=== PATIENT | female | born 1945 | race Hispanic/Latino ===

== ENCOUNTER 2018-01-23 16:05 | Inpatient (IN) | payer MEDICARE, MEDICAID ==
[2018-01-23 16:05] VITALS: BMI 25.4
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
--- NOTE | 2018-01-23 17:51 | RAD ---
Date of service: 01/23/2018 PROCEDURE: CHEST RADIOGRAPH, 1 VIEW HISTORY: ROUTINE COMPARISON: Chest radiograph dated 02/22/2012. FINDINGS: LUNGS: Clear. PLEURA: No pneumothorax or pleural fluid seen. CARDIOVASCULAR: Atherosclerotic aortic calcifications. Cardiomediastinal silhouette stably enlarged. OSSEOUS STRUCTURES: Unchanged. VISUALIZED UPPER ABDOMEN: Inferior vena cava filter redemonstrated. OTHER FINDINGS: None. IMPRESSION: No active disease.
[2018-01-23 18:05] LABS: BASO # 0.1 K/uL (0.0-0.2); BASO % 0.7 % (0.0-2.0); EOS # 0.1 K/uL (0.0-0.7); EOS % 1.4 % (0.0-4.0); HEMOGLOBIN 12.4 g/dL (12.0-16.0); LYMPH # 3.9 K/uL (1.0-4.3); LYMPH % 46.4 % (20.0-40.0); MEAN CELL VOLUME 100.2 fl (81.0-99.0); MEAN CORPUSCULAR HEMOGLOBIN 32.8 pg (27.0-31.0); MEAN CORPUSCULAR HGB CONC 32.7 g/dL (33.0-37.0); MEAN PLATELET VOLUME 10.5 fl (7.2-11.7); MONO % 11.5 % (0.0-10.0); NEUT # 3.3 K/uL (1.8-7.0); NRBC % 0.1 % (0.0-0.0); RBC 3.78 Mil/uL (3.80-5.20); RED CELL DISTRIBUTION WIDTH 13.6 % (11.5-14.5); WHITE BLOOD COUNT 8.3 K/uL (4.8-10.8)
[2018-01-23 18:17] LABS: ALB/GLOB RATIO 1.4 (1.0-2.1); ALBUMIN 3.9 g/dL (3.5-5.0); CALCIUM 8.7 mg/dL (8.4-10.2)
[2018-01-23] MEDS ORDERED: Albuterol-Ipratrop 3 mg / 0.5 (3 ml) UD IH STA (22:17)
[2018-01-23] MEDS ORDERED: Albuterol-Ipratrop 3 mg / 0.5 (3 ml) UD ONE (22:33)
[2018-01-23 22:49] VITALS: O2SAT 97
[2018-01-24] MEDS ORDERED: Alum-Mag Hydrox-Simethicone Susp (30 mL) PO PRN (00:15)
[2018-01-24] MEDS ORDERED: Magnesium Hydroxide Susp 30 ml UD PO PRN (00:15)
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
[2018-01-24] MEDS ORDERED: POLYETHYLENE GLYCOL 3350 17 GM/Dose PACKET PO PRN (00:55)
[2018-01-24] MEDS: Albuterol-Ipratrop 3 mg / 0.5 (3 ml) UD INH PRN ×2 (01:38→20:14)
[2018-01-24] MEDS: Multivitamin With Minerals Tab PO SCH (08:55)
[2018-01-24] MEDS: Divalproex 500 mg DR(BID formulation) PO SCH ×2 (08:55→17:34)
[2018-01-24] MEDS: Fluticasone-Salmeterol 250-50mcg Diskus IH SCH ×2 (08:56→21:17)
[2018-01-24 09:13] LABS: IRON 55 ug/dL (37-170)
[2018-01-24 09:18] LABS: T4 6.66 ug/dl (5.5-11.0)
[2018-01-24 09:27] LABS: % IRON SATURATION 22 % (20-55); TOTAL IRON BINDING CAPACITY 251 ug/dL (250-450)
--- NOTE | 2018-01-24 12:34 | CARD ---
APPROVED REPORT Date of service: 01/23/2018 EKG Measurement Heart [id number] <Conclusion> Normal sinus rhythm Normal ECG
[2018-01-24 17:45] LABS: FOLATE 9.7 ng/mL
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
--- NOTE | 2018-01-24 19:54 | CP.PCM.CON ---
History of Present Illness - History of Present Illness History of Present Illness: This is a 72 year old female with a past medical history of CHF, COPD, Depression, HTN, Schizophrenia, Depression, [facility]. The patient stated that she was upset at another resident. The history is limited due to the patient's psychiatric status. She denies any recent illnesses and states that she feels well. Other history from the patient could not be obtained. Review of Systems - Review of Systems Systems not reviewed;Unavailable: Dementia (Likely dementia and history of schizophrenia/bipolar) Past Patient History - Infectious Disease Hx of Infectious Diseases: None - Past Medical History & Family History Past Medical History?: Yes Past Family History: Reviewed and not pertinent - Past Social History Smoking Status: Never Smoked Alcohol: None Drugs: Denies - CARDIAC Hx Congestive Heart Failure: Yes Hx Hypertension: Yes - PULMONARY Hx Chronic Obstructive Pulmonary Disease (COPD): Yes - NEUROLOGICAL HX Cerebrovascular Accident: No Hx Seizures: No - HEENT Hx HEENT Problems: Yes Hx Cataracts: Yes - RENAL Hx Chronic Kidney Disease: No - ENDOCRINE/METABOLIC Hx Endocrine Disorders: No - HEMATOLOGICAL/ONCOLOGICAL Hx Cancer: No Hx Human Immunodeficiency Virus (HIV): No - INTEGUMENTARY Hx Dermatological Problems: No - MUSCULOSKELETAL/RHEUMATOLOGICAL Hx Falls: Yes Hx Fractures: Yes (SPINE/LEFT FEMUR/LEFT HIP) - GASTROINTESTINAL Hx Gastrointestinal Disorders: No - GENITOURINARY/GYNECOLOGICAL Hx Sexually Transmitted Disorders: No - PSYCHIATRIC Hx Bipolar Disorder: Yes Hx Depression: Yes Hx Schizophrenia: Yes Hx Substance Use: No - SURGICAL HISTORY Hx Surgeries: Yes Hx Open Reduction Internal Fixation: Yes (LEFT HIP) Hx Orthopedic Surgery: Yes (LEFT FEMUR) Other/Comment: IVC FILTER - ANESTHESIA Hx Anesthesia: Yes Hx Anesthesia Reactions: No (UNKNOWN) Hx Malignant Hyperthermia: No Meds Allergies/Adverse Reactions: Allergies Allergy/AdvReac Type Severity Reaction Status Date / Time aspirin Allergy NAUSEA Verified 01/23/18 16:49 lithium Allergy RASH Verified 01/23/18 16:49 paroxetine Allergy RASH Verified 01/23/18 16:49 - Medications Medications: Current Medications Acetaminophen (Tylenol 325mg Tab) 650 mg PO Q4 PRN PRN Reason: Pain, moderate (4-7) Al Hydrox/Mg Hydrox/Simethicone (Maalox Plus 30 Ml) 30 ml PO Q4 PRN PRN Reason: Dyspepsia Albuterol/Ipratropium (Duoneb 3 Mg/0.5 Mg (3 Ml) Ud) 3 ml INH RQ6 PRN PRN Reason: Shortness of Breath Last Admin: 01/24/18 01:38 Dose: 3 ml Allopurinol (Zyloprim) 100 mg PO DAILY [facility] Last Admin: 01/24/18 08:55 Dose: 100 mg Atenolol (Tenormin) 50 mg PO DAILY [facility] Last Admin: 01/24/18 08:55 Dose: 50 mg Denosumab (Prolia) 60 mg SC Q6M [facility] Divalproex Sodium (Depakote Dr(*Bid*)) 500 mg PO BID [facility] Last Admin: 01/24/18 17:34 Dose: 500 mg Ergocalciferol (Drisdol 50,000 Intl Units Cap) 1 cap PO MO AALIYAH Lorazepam (Ativan) 0.5 mg PO HS PRN PRN Reason: Insomnia Stop: 02/07/18 00:16 Last Admin: 01/24/18 01:52 Dose: 0.5 mg Lorazepam (Ativan) 0.5 mg PO Q6 PRN PRN Reason: Anixety/Agitation Stop: 02/07/18 00:16 Magnesium Hydroxide (Milk Of Magnesia) 30 ml PO HS PRN PRN Reason: Constipation Magnesium Oxide (Mag-Ox) 400 mg PO HS [facility] Multivitamins/Minerals (Therapeutic-M Tab) 1 tab PO DAILY [facility] Last Admin: 01/24/18 08:55 Dose: 1 tab Polyethylene Glycol (Miralax) 17 gm PO DAILY PRN PRN Reason: Constipation Fluticasone/Salmeterol (Advair Diskus 250/50) 1 puff IH Q12 [facility] Last Admin: 01/24/18 08:56 Dose: 1 puff Physical Exam - Additional Findings Additional findings: Physical exam: Constitutional- cooperative, awake, alert, speech at times incoherent, tangential thought Head- NCAT, PERRL Eye- PERRL, EOMI ENT- normal exam, MMM. Neck- normal inspection, supple, no JVD Respiratory- CTAB, no wheezes rales rhonchi Cardiovascular- RRR, +S1, +S2 no MRG GI/Abdominal- normal bowel sounds, soft, no mass, no hsm Skin- warm, dry Extremities Exam- normal capillary refill, normal inspection Neurological Exam- alert, awake, oriented Psych- bizarre affect, normal mood Results - Vital Signs Recent Vital Signs: Last Vital Signs Temp 97.9 F 01/24/18 15:38 Pulse 68 01/24/18 15:38 Resp 20 01/24/18 15:38 BP 132/82 01/24/18 15:38 Pulse Ox 97 01/23/18 22:48 - Labs Result Diagrams: 01/23/18 17:30 01/23/18 17:30 Labs: Laboratory Results - last 24 hr 01/24/18 01/24/18 01/24/18 08:27 08:27 08:27 Hemoglobin A1c 5.5 Iron TIBC % Saturation Ferritin 696.0 H Triglycerides 272 H Cholesterol 175 LDL Cholesterol Direct 81 HDL Cholesterol 36 Vitamin B12 661 Folate 9.7 Free T4 1.29 Thyroxine (T4) 6.66 TSH 3rd Generation 0.27 L RPR 01/24/18 01/24/18 08:27 08:38 Hemoglobin A1c Iron 55 TIBC 251 % Saturation 22 Ferritin Triglycerides Cholesterol LDL Cholesterol Direct HDL Cholesterol Vitamin B12 Folate Free T4 Thyroxine (T4) TSH 3rd Generation RPR Nonreactive Assessment & Plan - Assessment and Plan (Free Text) Plan: This is a 72 year old female with a past medical history of CHF, COPD, Depression, HTN, Schizophrenia, Depression, who is admitted to [facility] after [facility] in [facility]. The patient stated that she was upset at another resident. The history is limited due to the patient's psychiatric status. She denies any recent illnesses and states that she feels well. Other history from the patient could not be obtained. 1) Depression - management as per psychiatry 2) Bipolar/Schizophrenia - management as per psychiatry 3) Essential hypertension - Continue Tenormin 50 mg po daily 4) COPD, stable, baseline - Duoneb q6h prn for SOB - Advair 1 puff IH q 12 hours 5) Renal insufficiency, likely chronic - increase po fluid intake
[2018-01-24 21:10] LABS: SQUAMOUS EPITHIAL < 1 /hpf (0-5); URINE BILIRUBIN NEGATIVE (NEGATIVE); URINE BLOOD NEGATIVE (NEGATIVE); URINE CLARITY CLEAR (Clear); URINE COLOR STRAW (YELLOW); URINE GLUCOSE (UA) NEG (Normal); URINE LEUKOCYTE ESTERASE NEG Leu/uL (Negative); URINE PROTEIN NEGATIVE (NEGATIVE); URINE UROBILINOGEN 0.2-1.0 mg/dL (0.2-1.0)
[2018-01-24] MEDS: Magnesium Oxide 400 mg Tab UD PO SCH (21:17)
[2018-01-25] MEDS: Albuterol-Ipratrop 3 mg / 0.5 (3 ml) UD INH PRN ×2 (03:10→17:46)
[2018-01-25] MEDS: Fluticasone-Salmeterol 250-50mcg Diskus IH SCH ×2 (08:21→21:02)
[2018-01-25] MEDS: Divalproex 500 mg DR(BID formulation) PO SCH ×2 (08:22→16:57)
[2018-01-25] MEDS: Multivitamin With Minerals Tab PO SCH (08:23)
--- NOTE | 2018-01-25 17:26 | PCM.PYCHPN ---
Psychiatric Progress Note - Psychiatric Progress Note Patient seen today, length of contact: chart reviewed case discussed with team Patient Chief Complaint: pt reports doing ok, people get on my nerves especially when they try to take my things denies concerns here. staff report pt irritable at times during night. during day reported to be calmer, seen participating in evening group while having meal with peers. requires total care. was seen by hospitalist Problems Identified/Issues Discussed: alteration in mood cognition i Medical Problems: per chart Diagnostic Results: per psychiatry per medicine per nursing per social work msw DSM 5 Symptoms Update: somewhat less irritable Medication Change: Yes Medical Record Reviewed: Yes Consults ordered or reviewed: pt seen by hospitalist Mental Status Examination - Cognitive Function Orientation: Person, Place, Situation, Time Memory: Impaired Attention: Poor Concentration: Poor Association: Loose Fund of Knowledge: Poor Decription of patient's judgement and insights: impaired - Mood Mood: Anxious - Affect Affect: Broad - Speech Speech: Pressured - Formal Thought Process Formal Thought Process: Paranoia - Homicidal Ideation Homicidal Ideation: No Goal/Treatment Plan - Goal/Treatment Plan Need for Continued Stay: Remain at risks for inpatient hospitalization, Discharge may exacerbated symptoms Progress Toward Problem(s) and Goals/Treatment Plan: inpt milieu vital signs clinical observation per protocol and per clinical status adjust meds per clinical status obtain dementia screening dr breann [place] precautions skin precautions hospitalist consult appreciated encourage po fluids discharge planning in progress Estimated Date of D/C: 01/31/18 - Smoking Cessation Smoking Cessation Initiated: No Reason for not providing: pt deferred
[2018-01-25] MEDS: Magnesium Oxide 400 mg Tab UD PO SCH (21:01)
[2018-01-26] MEDS: Multivitamin With Minerals Tab PO SCH (08:40)
[2018-01-26] MEDS: Divalproex 500 mg DR(BID formulation) PO SCH ×2 (08:40→18:08)
[2018-01-26] MEDS: Fluticasone-Salmeterol 250-50mcg Diskus IH SCH ×2 (09:00→21:20)
[2018-01-26] MEDS: Albuterol-Ipratrop 3 mg / 0.5 (3 ml) UD INH PRN (09:40)
--- NOTE | 2018-01-26 16:02 | CP.PCM.CON ---
History of Present Illness - History of Present Illness History of Present Illness: Pt is 72 year old female admitted to the geropsych unit and referred to the job specification writer for evaluation. On the DRS, pt scored an overall score of 95>. Pt scored in the deficient range on Attention, Construction, Conceptualization, Initiation, and Memory tasks. Overall 87 (125= = intact skills) Attention 29 Construction 2 Conceptualtion 22 Initiation 21 memory 13 Significant cognitive deficits evident on testing. Thank you for this referral, Dr. Abreu Past Patient History - Infectious Disease Hx of Infectious Diseases: None - Past Medical History & Family History Past Medical History?: Yes Past Family History: Reviewed and not pertinent - Past Social History Smoking Status: Never Smoked Alcohol: None Drugs: Denies - CARDIAC Hx Congestive Heart Failure: Yes Hx Hypertension: Yes - PULMONARY Hx Chronic Obstructive Pulmonary Disease (COPD): Yes - NEUROLOGICAL HX Cerebrovascular Accident: No Hx Seizures: No - HEENT Hx HEENT Problems: Yes Hx Cataracts: Yes - RENAL Hx Chronic Kidney Disease: No - ENDOCRINE/METABOLIC Hx Endocrine Disorders: No - HEMATOLOGICAL/ONCOLOGICAL Hx Cancer: No Hx Human Immunodeficiency Virus (HIV): No - INTEGUMENTARY Hx Dermatological Problems: No - MUSCULOSKELETAL/RHEUMATOLOGICAL Hx Falls: Yes Hx Fractures: Yes (SPINE/LEFT FEMUR/LEFT HIP) - GASTROINTESTINAL Hx Gastrointestinal Disorders: No - GENITOURINARY/GYNECOLOGICAL Hx Sexually Transmitted Disorders: No - PSYCHIATRIC Hx Bipolar Disorder: Yes Hx Depression: Yes Hx Schizophrenia: Yes Hx Substance Use: No - SURGICAL HISTORY Hx Surgeries: Yes Hx Open Reduction Internal Fixation: Yes (LEFT HIP) Hx Orthopedic Surgery: Yes (LEFT FEMUR) Other/Comment: IVC FILTER - ANESTHESIA Hx Anesthesia: Yes Hx Anesthesia Reactions: No (UNKNOWN) Hx Malignant Hyperthermia: No Meds Allergies/Adverse Reactions: Allergies Allergy/AdvReac Type Severity Reaction Status Date / Time aspirin Allergy NAUSEA Verified 01/23/18 16:49 lithium Allergy RASH Verified 01/23/18 16:49 paroxetine Allergy RASH Verified 01/23/18 16:49 - Medications Medications: Current Medications Acetaminophen (Tylenol 325mg Tab) 650 mg PO Q4 PRN PRN Reason: Pain, moderate (4-7) Al Hydrox/Mg Hydrox/Simethicone (Maalox Plus 30 Ml) 30 ml PO Q4 PRN PRN Reason: Dyspepsia Albuterol/Ipratropium (Duoneb 3 Mg/0.5 Mg (3 Ml) Ud) 3 ml INH RQ6 PRN PRN Reason: Shortness of Breath Last Admin: 01/26/18 09:40 Dose: 3 ml Allopurinol (Zyloprim) 100 mg PO DAILY [facility] Last Admin: 01/26/18 08:40 Dose: 100 mg Atenolol (Tenormin) 50 mg PO DAILY [facility] Last Admin: 01/26/18 08:41 Dose: 50 mg Denosumab (Prolia) 60 mg SC ONCE ONE Stop: 07/23/18 01:01 Divalproex Sodium (Depakote Dr(*Bid*)) 500 mg PO BID [facility] Last Admin: 01/26/18 08:40 Dose: 500 mg Ergocalciferol (Drisdol 50,000 Intl Units Cap) 1 cap PO MO [facility] Lorazepam (Ativan) 0.5 mg PO HS PRN PRN Reason: Insomnia Stop: 02/07/18 00:16 Last Admin: 01/24/18 01:52 Dose: 0.5 mg Lorazepam (Ativan) 0.5 mg PO Q6 PRN PRN Reason: Anixety/Agitation Stop: 02/07/18 00:16 Magnesium Hydroxide (Milk Of Magnesia) 30 ml PO HS PRN PRN Reason: Constipation Magnesium Oxide (Mag-Ox) 400 mg PO HS [facility] Last Admin: 01/25/18 21:01 Dose: 400 mg Multivitamins/Minerals (Therapeutic-M Tab) 1 tab PO DAILY [facility] Last Admin: 01/26/18 08:40 Dose: 1 tab Polyethylene Glycol (Miralax) 17 gm PO DAILY PRN PRN Reason: Constipation Quetiapine Fumarate (Seroquel) 25 mg PO BID [facility] Last Admin: 01/26/18 08:41 Dose: 25 mg Quetiapine Fumarate (Seroquel) 50 mg PO HS [facility] Last Admin: 01/25/18 21:01 Dose: 50 mg Fluticasone/Salmeterol (Advair Diskus 250/50) 1 puff IH Q12 [facility] Last Admin: 01/26/18 09:00 Dose: 1 puff Results - Vital Signs Recent Vital Signs: Last Vital Signs Temp 98.6 F 01/26/18 15:33 Pulse 83 01/26/18 15:33 Resp 20 01/26/18 15:33 BP 96/61 L 01/26/18 15:33 Pulse Ox 97 01/23/18 22:48 - Labs Result Diagrams: 01/23/18 17:30 01/23/18 17:30
--- NOTE | 2018-01-26 16:49 | PCM.PYCHPN ---
Psychiatric Progress Note - Psychiatric Progress Note Patient seen today, length of contact: chart reviewed case discussed with team Patient Chief Complaint: pt seen seated in trevor chair, laughing at times, staff report inappropriately at times, staff report pt somewhat labile at times. requires total care. staff report pt adherent with rx but requires total set up. pt seen by dr gongora. Problems Identified/Issues Discussed: alteration in mood cognition alteration in self care Medical Problems: per chart Diagnostic Results: per psychiatry per medicine per nursing per social work faculty member per recreational therapy Medication Change: Yes (increase seroquel to 100mg po hs, maintain 25mg po bid) Medical Record Reviewed: Yes Consults ordered or reviewed: pt seen by hospitalist Mental Status Examination - Cognitive Function Orientation: Person, Place, Situation, Time Memory: Impaired Attention: Poor Concentration: Poor Association: Loose Fund of Knowledge: Poor Decription of patient's judgement and insights: impaired - Mood Additional comments: labile - Affect Affect: Broad - Speech Speech: Pressured - Formal Thought Process Formal Thought Process: No Impairment, Paranoia, Loosening of associations - Homicidal Ideation Homicidal Ideation: No Goal/Treatment Plan - Goal/Treatment Plan Need for Continued Stay: Remain at risks for inpatient hospitalization, Discharge may exacerbated symptoms Progress Toward Problem(s) and Goals/Treatment Plan: inpt milieu vital signs clinical observation per protocol and per clinical status adjust meds per clinical status will increase hs seroquel to 100mg po and maintain 25mg po bid-will repeat ekg in am assess Qtc 2nd atypical antipsychotic pt seen by dr breann gongora note per chart falls precautions skin precautions hospitalist consult appreciated encourage po fluids discharge planning in progress Estimated Date of D/C: 01/31/18 - Smoking Cessation Smoking Cessation Initiated: No Reason for not providing: pt defers
[2018-01-26] MEDS: Magnesium Oxide 400 mg Tab UD PO SCH (21:20)
[2018-01-27] MEDS: Albuterol-Ipratrop 3 mg / 0.5 (3 ml) UD INH PRN ×3 (00:50→18:26)
[2018-01-27] MEDS: Fluticasone-Salmeterol 250-50mcg Diskus IH SCH ×2 (08:15→21:17)
[2018-01-27] MEDS: Divalproex 500 mg DR(BID formulation) PO SCH ×2 (08:16→16:44)
[2018-01-27] MEDS: Multivitamin With Minerals Tab PO SCH (08:18)
--- NOTE | 2018-01-27 17:31 | PCM.PYCHPN ---
Psychiatric Progress Note - Psychiatric Progress Note Patient seen today, length of contact: chart reviewed case discussed with team Patient Chief Complaint: pt seen seated in trevor chair, in activities room, appears to be participating in therapeutic coloring, laughing at times, staff report inappropriately at timems. pt somewhat labile at times. requires total care. staff report pt adherent with rx but requires total set up. pt seen by dr gongora yesterday on chart.. Problems Identified/Issues Discussed: alteration in mood cognition alteration in self care Medical Problems: per chart Diagnostic Results: per psychiatry per medicine per nursing per social service technician per recreational therapy DSM 5 Symptoms Update: somewhat less labile denies side effects Medication Change: No Medical Record Reviewed: Yes Consults ordered or reviewed: pt seen by hospitalist Mental Status Examination - Cognitive Function Orientation: Person, Place, Situation, Time Memory: Impaired Attention: Poor Concentration: Poor Association: Loose Fund of Knowledge: Poor Decription of patient's judgement and insights: impaired - Mood Mood: Anxious - Affect Affect: Broad - Speech Speech: Pressured - Formal Thought Process Formal Thought Process: No Impairment, Paranoia, Loosening of associations - Homicidal Ideation Homicidal Ideation: No Goal/Treatment Plan - Goal/Treatment Plan Need for Continued Stay: Remain at risks for inpatient hospitalization, Discharge may exacerbated symptoms Progress Toward Problem(s) and Goals/Treatment Plan: inpt milieu vital signs clinical observation per protocol and per clinical status adjust meds per clinical status will increase hs seroquel to 100mg po and maintain 25mg po bid-will repeat ekg in am assess Qtc 2nd atypical antipsychotic pt seen by dr breann gongora note per chart falls precautions skin precautions hospitalist consult appreciated repeat tsh was decreased if continues to be decreased contact hospitalist ? endocrinology lencourage po fluids discharge planning in progress Estimated Date of D/C: 01/31/18 - Smoking Cessation Smoking Cessation Initiated: No Reason for not providing: pt defers
[2018-01-27] MEDS: Magnesium Oxide 400 mg Tab UD PO SCH (21:18)
[2018-01-28] MEDS: Albuterol-Ipratrop 3 mg / 0.5 (3 ml) UD INH PRN ×2 (01:02→23:17)
[2018-01-28] MEDS: Fluticasone-Salmeterol 250-50mcg Diskus IH SCH ×2 (08:55→21:20)
[2018-01-28] MEDS: Divalproex 500 mg DR(BID formulation) PO SCH ×2 (08:56→17:17)
[2018-01-28] MEDS: Multivitamin With Minerals Tab PO SCH (09:01)
--- NOTE | 2018-01-28 11:41 | PCM.PYCHPN ---
Psychiatric Progress Note - Psychiatric Progress Note Patient seen today, length of contact: chart reviewed case discussed with team Patient Chief Complaint: I am coughing because I used to smoke Problems Identified/Issues Discussed: pt evaluated seen in bed, presenting with over productive speech, labile affect , thought process tangential limited insight into illness, no reported side effects of medications, denied any current suicidal or homicidal ideation DSM 5 Symptoms Update: bipolar disorder neurocognitive disorder Medication Change: No Medical Record Reviewed: Yes Mental Status Examination - Cognitive Function Orientation: Person, Place, Situation, Time Memory: Impaired Attention: Poor Concentration: Poor Association: Loose Fund of Knowledge: Poor - Mood Mood: Anxious - Affect Affect: Broad - Speech Speech: Pressured - Formal Thought Process Formal Thought Process: No Impairment, Paranoia, Loosening of associations - Suicidal Ideation Suicidal Ideation: No - Homicidal Ideation Homicidal Ideation: No Goal/Treatment Plan - Goal/Treatment Plan Need for Continued Stay: Remain at risks for inpatient hospitalization, Discharge may exacerbated symptoms Progress Toward Problem(s) and Goals/Treatment Plan: continue with seroquel and depakote group and supportive therapy Estimated Date of D/C: 01/31/18
[2018-01-28] MEDS: Magnesium Oxide 400 mg Tab UD PO SCH (21:20)
[2018-01-29 07:16] LABS: ALB/GLOB RATIO 1.2 (1.0-2.1); ALBUMIN 3.3 g/dL (3.5-5.0); CALCIUM 8.7 mg/dL (8.4-10.2)
[2018-01-29] MEDS: Fluticasone-Salmeterol 250-50mcg Diskus IH SCH ×2 (08:47→21:03)
[2018-01-29] MEDS: Divalproex 500 mg DR(BID formulation) PO SCH ×2 (08:47→17:22)
[2018-01-29] MEDS: Multivitamin With Minerals Tab PO SCH (08:50)
--- NOTE | 2018-01-29 12:24 | PCM.PYCHPN ---
Psychiatric Progress Note - Psychiatric Progress Note Patient seen today, length of contact: chart reviewed case discussed with team Patient Chief Complaint: I am tired today Problems Identified/Issues Discussed: pt evaluated seen in bed, continues to be labile with over productive speech, thought process tangential limited insight into illness, no reported side effects of medications, denied any current suicidal or homicidal ideation DSM 5 Symptoms Update: bipolar disorder major neurocognitive disorder Medication Change: No Medical Record Reviewed: Yes Mental Status Examination - Cognitive Function Orientation: Person, Place, Situation, Time Memory: Impaired Attention: Poor Concentration: Poor Association: Loose Fund of Knowledge: Poor - Mood Mood: Anxious - Affect Affect: Broad - Speech Speech: Pressured - Formal Thought Process Formal Thought Process: No Impairment, Paranoia, Loosening of associations - Suicidal Ideation Suicidal Ideation: No - Homicidal Ideation Homicidal Ideation: No Goal/Treatment Plan - Goal/Treatment Plan Need for Continued Stay: Remain at risks for inpatient hospitalization, Discharge may exacerbated symptoms Progress Toward Problem(s) and Goals/Treatment Plan: continue with seroquel and depakote group and supportive therapy Estimated Date of D/C: 01/31/18
[2018-01-29] MEDS ORDERED: Sod Polystyrene Sulf 15 gm/60 ml Susp PO ONE (19:16)
[2018-01-29] MEDS: Magnesium Oxide 400 mg Tab UD PO SCH (21:03)
[2018-01-30] MEDS: Multivitamin With Minerals Tab PO SCH (08:23)
[2018-01-30] MEDS: Fluticasone-Salmeterol 250-50mcg Diskus IH SCH ×2 (08:23→21:01)
[2018-01-30] MEDS: Divalproex 500 mg DR(BID formulation) PO SCH ×2 (08:23→16:50)
--- NOTE | 2018-01-30 08:55 | PCM.PYCHPN ---
Psychiatric Progress Note - Psychiatric Progress Note Patient seen today, length of contact: Patient evaluated, case discussed with team, chart reviewed Patient Chief Complaint: "I'm happy." Problems Identified/Issues Discussed: Patient continues to be labile, excessively happy, laughing to herself and paranoid. Diagnostic Results: VPA 55.6 on 01/27/18 Medication Change: Yes (Increase Seroquel) Medical Record Reviewed: Yes Consults ordered or reviewed: Medicine consult Mental Status Examination - Cognitive Function Orientation: Person, Place, Situation, Time Memory: Impaired Attention: Poor Concentration: Poor Association: Loose Fund of Knowledge: Poor Decription of patient's judgement and insights: Poor I/J - Mood Mood: Euphoric - Affect Affect: Other (Labile; inappropriately happy) - Speech Speech: Pressured - Formal Thought Process Formal Thought Process: Paranoia, Loosening of associations Psychotic Thoughts and Behaviors: +Paranoia - Suicidal Ideation Suicidal Ideation: No - Homicidal Ideation Homicidal Ideation: No Goal/Treatment Plan - Goal/Treatment Plan Need for Continued Stay: Remain at risks for inpatient hospitalization, Discharge may exacerbated symptoms Progress Toward Problem(s) and Goals/Treatment Plan: Bipolar Disorder; Major Neurocognitive Impairment -Continue Depakote; VPA 55.6 on 01/27/18 -Increase Seroquel -Individual and group therapy -Medicine consult -Disposition planning Estimated Date of D/C: 02/03/18
[2018-01-30] MEDS ORDERED: Ergocalciferol 50,000 Intl Units Cap PO SCH (09:41)
--- NOTE | 2018-01-30 17:55 | CARD ---
APPROVED REPORT Date of service: 01/28/2018 EKG Measurement Heart [id number] <Conclusion> Normal sinus rhythm Low voltage QRS Borderline ECG
[2018-01-30] MEDS: Magnesium Oxide 400 mg Tab UD PO SCH (21:01)
[2018-01-31 07:44] LABS: CALCIUM 8.5 mg/dL (8.4-10.2)
[2018-01-31] MEDS: Fluticasone-Salmeterol 250-50mcg Diskus IH SCH ×2 (09:59→21:05)
[2018-01-31] MEDS: Multivitamin With Minerals Tab PO SCH (10:00)
[2018-01-31] MEDS: Divalproex 500 mg DR(BID formulation) PO SCH ×2 (10:00→17:50)
--- NOTE | 2018-01-31 18:07 | PCM.PYCHPN ---
Psychiatric Progress Note - Psychiatric Progress Note Patient seen today, length of contact: Patient evaluated, case discussed with team, chart reviewed Patient Chief Complaint: staff report pt. appears somewhat calmer, requires total set up and care. staff report pt sleeping at night. qtc wnl (pt. receiving atypical antipsychotics escalating per clinical status), requires total care Problems Identified/Issues Discussed: alteration in mood cognition alteration in self care Medical Problems: per chart Diagnostic Results: per psychiatry per medicine per nursing per social sciences lecturer per recreational therapy DSM 5 Symptoms Update: somewhat improving lability in mood cognitive impairment Medication Change: No Medical Record Reviewed: Yes Consults ordered or reviewed: pt seen by hospitalist Mental Status Examination - Cognitive Function Orientation: Person, Place, Situation, Time Memory: Impaired Attention: Poor Concentration: Poor Association: Loose Fund of Knowledge: Poor Decription of patient's judgement and insights: poor - Mood Mood: Euphoric Additional comments: somewhat less - Affect Affect: Other (Labile; inappropriately happy at times, somewhat less) - Speech Speech: Pressured - Formal Thought Process Formal Thought Process: Paranoia, Loosening of associations - Suicidal Ideation Suicidal Ideation: No - Homicidal Ideation Homicidal Ideation: No Goal/Treatment Plan - Goal/Treatment Plan Need for Continued Stay: Remain at risks for inpatient hospitalization, Discharge may exacerbated symptoms Progress Toward Problem(s) and Goals/Treatment Plan: inpt milieu vital signs clinical observation per protocol and per clinical status adjust meds per clinical status pt seen by dr breann gongora note per chart falls precautions skin precautions hospitalist consult appreciated discharge planning in progress Estimated Date of D/C: 02/03/18 - Smoking Cessation Smoking Cessation Initiated: No Reason for not providing: deferred
[2018-01-31] MEDS: Magnesium Oxide 400 mg Tab UD PO SCH (21:05)
[2018-02-01] MEDS: Albuterol-Ipratrop 3 mg / 0.5 (3 ml) UD INH PRN (01:31)
[2018-02-01] MEDS: Divalproex 500 mg DR(BID formulation) PO SCH (08:26)
[2018-02-01] MEDS: Fluticasone-Salmeterol 250-50mcg Diskus IH SCH ×2 (08:27→21:11)
[2018-02-01] MEDS: Multivitamin With Minerals Tab PO SCH (08:27)
--- NOTE | 2018-02-01 15:58 | PCM.PYCHPN ---
Psychiatric Progress Note - Psychiatric Progress Note Patient seen today, length of contact: Patient evaluated, case discussed with team, chart reviewed Patient Chief Complaint: pt noted to be seated in room, social area laughing to self although pleasant , staff report pt is labile, requires total care and st Problems Identified/Issues Discussed: alteration in mood cognition alteration in self care Medical Problems: per chart Diagnostic Results: per psychiatry per medicine per nursing per social professionals per recreational therapy DSM 5 Symptoms Update: labile mood Medication Change: Yes (increase valproic acid to 750mg po bid) Medical Record Reviewed: Yes Consults ordered or reviewed: hospitalist Mental Status Examination - Cognitive Function Orientation: Person, Place, Situation, Time Memory: Impaired Attention: Poor Concentration: Poor Association: Loose Fund of Knowledge: Poor Decription of patient's judgement and insights: poor, labile - Mood Mood: Euphoric - Affect Affect: Other (Labile; inappropriately happy at times, somewhat less) - Speech Speech: Pressured - Formal Thought Process Formal Thought Process: Paranoia, Loosening of associations - Suicidal Ideation Suicidal Ideation: No - Homicidal Ideation Homicidal Ideation: No Goal/Treatment Plan - Goal/Treatment Plan Need for Continued Stay: Remain at risks for inpatient hospitalization, Discharge may exacerbated symptoms Progress Toward Problem(s) and Goals/Treatment Plan: inpt milieu vital signs clinical observation per protocol and per clinical status adjust meds per clinical status given labile mood will increase valproic acid to 750mg po bid, repeat valproic acid level [id number] TSH 0.17 [id number] pt seen by dr breann gongora note per chart falls precautions skin precautions hospitalist consult appreciated discharge planning in progress Estimated Date of D/C: 02/03/18 - Smoking Cessation Smoking Cessation Initiated: No Reason for not providing: pt deferred
[2018-02-01] MEDS ORDERED: Divalproex 500 mg DR(BID formulation) PO SCH (17:00)
[2018-02-01] MEDS: Divalproex 250 mg DR(BID formulation) PO SCH (17:36)
[2018-02-01] MEDS: Magnesium Oxide 400 mg Tab UD PO SCH (21:11)
[2018-02-02] MEDS: Fluticasone-Salmeterol 250-50mcg Diskus IH SCH ×2 (08:56→21:03)
[2018-02-02] MEDS: Multivitamin With Minerals Tab PO SCH (08:59)
[2018-02-02] MEDS: Divalproex 250 mg DR(BID formulation) PO SCH ×2 (09:02→17:22)
--- NOTE | 2018-02-02 12:09 | PCM.BM ---
Treatment Plan Problems - Problems identified on initial assessmt Agitated /Aggressive Behavior Date Initiated: 01/24/18 Time Initiated: 00:31 Assessment reference: NA Status: Active Ineffective Impulse Control Date Initiated: 01/24/18 Time Initiated: 00:31 Assessment reference: NA Status: Active Treatment assets and liabiliti Patient Assests: cooperative, negotiates basic needs, cognitively intact Patient Liabilities: medical problems - Milieu Protocol Maintain good personal hygiene: daily Encourage regular showers, daily Remind patient to perform daily oral care, daily Assist patient to perform ADL's Conduct patient checks and document Observation sheet: Q15 minutes Maintain personal safety: every shift Educate patient to report safety concerns to staff, every shift Monitor environment for contraband/sharps Medication safety: Monitor for expected outcome, potential side effects: every shift, Assess barriers to learning: every shift, Assess readiness for medication education: every shift Milieu Narrative: inpt milieu vital signs clinical observation per protocol and per clinical status adjust meds per clinical status given labile mood will increase valproic acid to 750mg po bid, repeat valproic acid level [id number] TSH 0.17 [id number] pt seen by dr breann gongora note per chart falls precautions skin precautions hospitalist consult appreciated discharge planning in progress Family Contact Family involvement: Famliy/SO not involved - Outside Agency [facility] Care involvment: Information-sharing Agency contact number: [phone] Office of the Public Guardian Care involvment: Following patient during stay, Information-sharing Agency contact name: Richard Allen - cyanide case hardener Agency contact number: [phone] - Goals for Treatment Patient goals for treatment: Unable to state at this time Discharge/Continuing Care - Education Needs Education Needs: Patient Medication, Patient Diagnosis/Disease Process, Patient Anger Management skills, Patient Placement options, Patient Community resources , Patient Activities of Daily Living, Patient Uses of Medical Equipment, Patient Health Practices/Safety, Patient Personal Hygiene/Grooming, Patient Aftercare Safety Plan - Discharge Discharge Criteria: Tolerates medication w/o severe side effects, Free of paranoid thoughts, Free of agitation, Normal sleep pattern, Ability to care for self, Reduction of target symptoms Discharge to:: Alf - Additional Comments 01/26/18 14:20 Pt seen and discussed in team meeting. Reason for hospitalization reviewed and discussed. During initial contact pt was very tearful, unable to provide explanation why she was crying. Pt presented as labile, flight of ideas, loose of association, unable to remain focused, and laughing inappropriate at times. Pt presented with pressured speech, ramblings and incomprehensible possibly due to lack of teeth. Forming Department End Finder inquired about incident with roommate, pt became increasingly agitated, angry, and belligerent. Pt stated "those 2 b better be there when i get back, I'm going to kick their assess." Pt began talking about about roommate ad shoes. Pt observed to be responding to internal stimuli when alone in her bedroom. Tx plan reviewed and discussed. Pt's medications reviewed. SW to contact [facility] cyanide case hardener and review tx plan and medications. SW will continue to follow case. - Treatment Team Participation Patient/Family/SO Statement: inpt milieu vital signs clinical observation per protocol and per clinical status adjust meds per clinical status given labile mood will increase valproic acid to 750mg po bid, repeat valproic acid level [id number] TSH 0.17 [id number] pt seen by dr breann gongora note per chart falls precautions skin precautions hospitalist consult appreciated discharge planning in progress Discussed with Family/SO: No Was Patient/Family/SO present at Treatment Team Meeting: Yes Treatment Plan Review Patient participation: Yes Family/SO/Caregiver participation: No Additional Comments: Pt reviewed and discussed in team meeting. Pt did not attend. Pt's progress and bx on the unit reviewed and discussed. Pt has no exhibited nay aggressive or assuasive bx's on the unit. Pt is compliant with prescribed medications. Pt is less irritable and agitated. Pt continues to express paranoia towards roommate; however, it appears to be a fixed delusion. Pt observed talking to self from time to time, but with improvement. Pt is adherent to activity groups. Pt's medications reviewed. Tx plan reviewed. Pt has a tentative discharge to senior care care facility for 02/03/2018. Krzysztof TERAN will continue to follow case and instructed to follow up with facility prior to transfer. - Problem Agitated /Aggressive Behavior Date Initiated: 01/23/18 Time Initiated: 00:31 Progress toward outcomes: resolved Date resolved: 01/27/18 Ineffective Impulse Control Date Initiated: 01/23/18 Time Initiated: 00:31 Progress toward outcomes: improved - Discharge / Continuing Care Discharge to:: Alf (Pt is a senior care care resident at [facility]) Behavioral Health Services: Other (Meidcation management; secure unit) Health Needs: Follow up care/test, Doctor appointments, Special equipment, Nutritional, Medications/Rx, Recreational/Social
--- NOTE | 2018-02-02 16:40 | PCM.PYCHPN ---
Psychiatric Progress Note - Psychiatric Progress Note Patient seen today, length of contact: Patient evaluated, case discussed with team, chart reviewed Patient Chief Complaint: pt noted to be seated in room, social area laughing to self although pleasant , staff report pt is less labile, requires total care but allows staff to assist. Problems Identified/Issues Discussed: alteration in mood cognition alteration in self care Medical Problems: per chart Diagnostic Results: per psychiatry per medicine per nursing per social media marketing manager per recreational therapy DSM 5 Symptoms Update: lability in mood improving likely fixed delusion towards roommate Medication Change: No Medical Record Reviewed: Yes Consults ordered or reviewed: pt seen by hospitalist Mental Status Examination - Cognitive Function Orientation: Person, Place, Situation, Time Memory: Impaired Attention: Poor Concentration: Poor Association: Loose Fund of Knowledge: Poor Decription of patient's judgement and insights: less labile - Mood Mood: Euphoric - Affect Affect: Other (Labile; inappropriately happy at times, somewhat less) - Speech Speech: Pressured Additional comments: less as compared to initial presentation - Formal Thought Process Formal Thought Process: Paranoia, Loosening of associations - Suicidal Ideation Suicidal Ideation: No - Homicidal Ideation Homicidal Ideation: No Goal/Treatment Plan - Goal/Treatment Plan Need for Continued Stay: Remain at risks for inpatient hospitalization, Discharge may exacerbated symptoms Progress Toward Problem(s) and Goals/Treatment Plan: inpt milieu vital signs clinical observation per protocol and per clinical status adjust meds per clinical status given labile mood will increase valproic acid to 750mg po bid, valproic acid level can be repeated at [facility] 02/04/18 or at discretion of treatment team there falls precautions skin precautions hospitalist consult appreciated discharge planning in progress-if clinically stable pt may be discharged tomorrow to [facility] facility Estimated Date of D/C: 02/03/18 - Smoking Cessation Smoking Cessation Initiated: No Reason for not providing: pt deferred
[2018-02-02 18:15] VITALS: RESP 20
[2018-02-02] MEDS: Magnesium Oxide 400 mg Tab UD PO SCH (21:03)
[2018-02-03 06:47] VITALS: TEMP 97.1
[2018-02-03] MEDS: Multivitamin With Minerals Tab PO SCH (08:38)
[2018-02-03] MEDS: Fluticasone-Salmeterol 250-50mcg Diskus IH SCH (08:38)
[2018-02-03 08:43] VITALS: BP 142/78; PULSE 82
[2018-02-03] MEDS: Divalproex 250 mg DR(BID formulation) PO SCH (09:22)
--- NOTE | 2018-02-03 14:35 | PCM.PYCHDC ---
Mental Status Examination - Mental Status Examination Orientation: Person, Place Memory: Impaired Mood: Other (less labile as compaired to day of admission) Affect: Broad Speech: Pressured (less pressured than day of admission) Attention: WNL (somewhat improved as compaired to day of admission) Concentration: WNL (compaired to day of admission is somewhat improved) Association: Loose Fund of Knowledge: Poor (somewhat improved as compaired to day of admission) Formal Thought Process: Delusions (likely fixed ) Description of patient's judgement and insight: less labile poor Discharge Summary - Discharge Note Reason for Hospitalization: pt signed in voluntarily Laboratory Data: as per chart Consultations:: List each consultation separately and include: 1. Reason for request. 2. Findings. 3. Follow-up Consultations: pt seen by hospitalist Summary of Hospital Course include:: 1. Description of specific treatment plan utilized for patients during their course of treatmen. 2. Summarize the time- course for resolution of acute symptoms and/or regressed behaviors. 3. Describe issues identified and worked on during hospitalization. 4. Describe medication utilized. 5. Describe medical problems identified and treated. 6. Reassessment of suicide risk Summary of Hospital Course: reportedly at [facility] brought in by [facility] after staff called ems after pt reportedly became upset, trying to hit staff, yelling. pt has hx of schizoaffective disorder bipolar type treated with depakote and seroquel. pt report previously seen by various pmd's in community, was hospitalized once in past for attempted suicide (does not recall details). admits having schizophrenia and bipolar illness in past. pt was evaluated on unit medications were adjusted according to clinical status. pt. required total care was assisted to participate in milieu therapy per toleration, pt was initially more labile laughing more to self but with gradual titration of medication appeared to be less labile. was adherent with treatment. was evaluated by hospitalist. appeared to have reach baseline with fixed delusion towards roommate. pt was discharged per attending back to [facility] facility. - Diagnosis (1) Schizoaffective disorder, bipolar type Current Visit: Yes Status: Chronic (2) Dementia Current Visit: Yes Status: Acute Priority: Medium (3) Dementia with behavioral disturbance Current Visit: Yes Status: Acute Priority: Medium - Final Diagnosis (DSM 5) Condition upon Discharge: FAIR Disposition: HOME/ ROUTINE Follow-up Treatment Plan: inpt milieu vital signs clinical observation per protocol and per clinical status adjust meds per clinical status given labile mood will increase valproic acid to 750mg po bid, valproic acid level can be repeated at [facility] facility 02/04/18 or at discretion of treatment team there falls precautions skin precautions hospitalist consult appreciated discharge planning in progress-if clinically stable pt may be discharged tomorrow to [facility] facility - Smoking Cessation Smoking Cessation Medication prescribed: No Reason for not providing: pt defers - Antipsychotic Medications Pt discharged on 2 or more routine antipsychotic medications: No - Justification for 2 or more meds Justification other than those listed above:: clozapine not used
[2018-07-23] MEDS ORDERED: Denosumab 60 mg/ml Sol(Prolia) SC ONE (01:00)
== END 2018-02-03 15:17 | DRG 885 ==
LOC: SUPCPDRO 16:05 → H.ER 16:05 → H.ERHOLD 23:05 → H.STEP 01-24 00:05
PROVIDERS: ADMIT Psychiatry & Neurology Psychiatry; ATTEND Psychiatry & Neurology Psychiatry
PROC: GZ58ZZZ Individual Psychotherapy, Cognitive-Behavioral (ICD-10-PCS; 2018-01-23)
PROC: GZHZZZZ Group Psychotherapy (ICD-10-PCS; principal; 2018-01-24)
DX: F25.0 Schizoaffective disorder, bipolar type (principal); F01.51 Vascular dementia, unspecified severity, with behavioral disturbance; I11.0 Hypertensive heart disease with heart failure; I50.9 Heart failure, unspecified; J44.9 Chronic obstructive pulmonary disease, unspecified; Z79.51 Long term (current) use of inhaled steroids; Z87.891 Personal history of nicotine dependence; F32.9 Major depressive disorder, single episode, unspecified; H26.9 Unspecified cataract; Z79.899 Other long term (current) drug therapy; R41.89 Other symptoms and signs involving cognitive functions and awareness; R45.86 Emotional lability